=== PATIENT | female | born 1960 | race Caucasian/White ===

== ENCOUNTER 2017-07-04 12:42 | Day surgery (SDC) | payer OTHER ==
--- NOTE | 2017-07-04 12:39 | CPEKG ---
Heart Rate: 85 RR Interval: 706 P-R Interval: 177 QRSD Interval: 116 QT Interval: 388 QTC Interval: 462 P Aurora: 22 QRS Aurora: 155 T Wave Aurora: 14 EKG Severity - ABNORMAL ECG - EKG Impression: ATRIAL-SENSED VENTRICULAR-PACED RHYTHM Electronically Signed By: Iban Graham 04-Jul-2017 13:03:26
[~2017-07-04 12:42] MED LIST: ASPIRIN EC 325 MG TAB PO ONE; DIAZEPAM 5 MG TAB PO ONE; FAMOTIDINE 20 MG TAB PO ONE; NS 1,000 ML IV ONE; diphenhydrAMINE 25 MG CAP PO ONE
[2017-07-04 12:58] LABS: PLATELET COUNT 243 10^3/uL (150-400)
[2017-07-04] MEDS ORDERED: fentaNYL 100 MCG/2 ML INJ ONE (13:03)
[2017-07-04] MEDS ORDERED: LIDOCAINE 1% 300 MG/30 ML SDV ONE (13:03)
[2017-07-04] MEDS ORDERED: IOPAMIDOL (ISOVUE-370) 150 ML BTL IV ONE (13:04)
[2017-07-04] MEDS ORDERED: MIDAZOLAM 2 MG/2 ML VIAL ONE (13:04)
--- NOTE | 2017-07-04 13:09 | PDHPUP ---
History & Physical Update H&P update statement: This history and physical update is based on an assessment of the patient which was completed after admission or registration (within 24 hours), but prior to the surgery/procedure. H&P update: H&P reviewed & patient examined, no change in patient's condition since H&P completed
--- NOTE | 2017-07-04 13:09 | PDPROPOC ---
Sedation Plan of Care Sedation Plan of Care: vital signs stable, mental status noted, patient educated of risks, benefits, alternatives, patient can tolerate sedation ASA Classification: ASA 2 Planned drugs: fentanyl, midazolam Mallampati Score: Class 2 Mallampati Reference Image: Patient passed 3-3-2 rule?: Yes
[2017-07-04 13:10] LABS: INR 1.02 (0.83-1.16); PROTIME(PATIENT) 13.6 SEC (12.0-15.0)
[2017-07-04] MEDS ORDERED: NITROGLYCERIN 0.4 MG BTL SL PRN (14:10)
[2017-07-04] MEDS ORDERED: ATROPINE SULFATE 1 MG/10 ML SYR IVP PRN (14:10)
--- NOTE | 2017-07-04 14:50 | CPIP ---
[f rep st] INVASIVE CARDIAC PROCEDURE DATE OF PROCEDURE: 07/04/2017 PROCEDURE: 1. Coronary angiography. 2. Left ventriculography. INDICATION: 1. Known coronary artery disease, status post stenting of the left anterior descending coronary saumya ry. 2. Exertional chest pain, concerning for class 3 angina. 3. Abnormal exercise tolerance test that is intermediate risk. ACCESS: Patient was prepped and draped in a sterile fashion. 1% lidocaine was used to anesthetize t he right inguinal region. A 6-Bahamian introducer sheath was placed selectively into the right common femoral artery via modified Seldinger technique. CORONARY ANGIOGRAPHY: A 6-Bahamian JL4 was advanced to the left main coronary artery and images obtain ed. The left main coronary artery bifurcated into an LAD and circumflex coronary arteries. The left main coronary artery appeared normal. The left anterior descending coronary artery gave rise to one prominent diagonal branch as well as several smaller diagonal branches. The left anterior descendin g coronary artery was previously stented in the proximal and mid segments. The previously placed teresita nts have mild in-stent restenosis without flow limitation. The diagonal arteries are free of any sig nificant disease. The circumflex coronary artery is a moderate sized vessel. The circumflex coronar y artery gave rise to 5 OM branches. The circumflex coronary artery and its complement of OM branche s appeared normal. A 6-Bahamian Corey right catheter was advanced to the right coronary artery and images obtained. The right coronary artery is dominant. The right coronary artery appeared free of any significant disease. LEFT VENTRICULOGRAPHY: A 6-Bahamian pigtail catheter was advanced in the left ventricle and images obt ained. The left ventricle is normal in size and normal systolic function. Estimated ejection fracti on was 60%. Left ventricular end-diastolic pressure was 15 mmHg. COMPLICATIONS: None. CONCLUSIONS: 1. Patent left anterior descending stents with mild in-stent restenosis. 2. Mild coronary artery disease without flow limitation. 3. Normal left ventricular size and systolic function. 4. Plan is for medical management. /[id number]/MODL
[2017-07-04] MEDS ORDERED: CARVEDILOL 3.125 MG TAB PO SCH (21:00)
[2017-07-04] MEDS ORDERED: LORATADINE PO SCH (21:00)
[2017-07-04] MEDS ORDERED: CARVEDILOL 6.25 MG TAB PO SCH (21:00)
[2017-07-04] MEDS ORDERED: ESCITALOPRAM OXALATE 10 MG TAB PO SCH (21:00)
[2017-07-04] MEDS ORDERED: DOCUSATE SODIUM 100 MG CAP PO SCH (21:00)
[2017-07-04] MEDS ORDERED: MONTELUKAST SODIUM 10 MG TAB PO SCH (21:00)
[2017-07-04] MEDS ORDERED: NON-FORMULARY NEW DRUG (Ranitidine Hcl [Zantac] 300 MG) PO SCH (21:00)
[2017-07-05] MEDS ORDERED: PANTOPRAZOLE SODIUM 40 MG TAB PO SCH (09:00)
[2017-07-05] MEDS ORDERED: MULTIVITAMINS 1 EACH TAB PO SCH (09:00)
[2017-07-05] MEDS ORDERED: SPIRONOLACTONE 25 MG TAB PO SCH (09:00)
[2017-07-05] MEDS ORDERED: CLOPIDOGREL BISULFATE 75 MG TAB PO SCH (09:00)
[2017-07-05] MEDS ORDERED: ASPIRIN 81 MG CHEWABLE TAB PO SCH (09:00)
[2017-07-05] MEDS ORDERED: NON-FORMULARY NEW DRUG (Levocetirizine Dihydrochloride [Xyzal] 5 MG) PO SCH (09:00)
[2017-07-05] MEDS ORDERED: LOSARTAN POTASSIUM 25 MG TAB PO SCH (09:00)
== END 2017-07-04 18:29 | disposition home or self-care (01) ==
LOC: FCATH 12:42
PROVIDERS: ATTEND Internal Medicine Cardiovascular Disease
DX: T82.857A Stenosis of other cardiac prosthetic devices, implants and grafts, initial encounter (principal); I25.119 Atherosclerotic heart disease of native coronary artery with unspecified angina pectoris; Z95.5 Presence of coronary angioplasty implant and graft; Z95.810 Presence of automatic (implantable) cardiac defibrillator
CPT/HCPCS: J1644; J2250; J3010; Q9967

== ENCOUNTER 2018-01-22 09:45 | Day surgery (SDC) | payer OTHER ==
[2018-01-22] MEDS ORDERED: diphenhydrAMINE 25 MG CAP PO ONE (09:48)
[2018-01-22] MEDS ORDERED: DIAZEPAM 5 MG TAB PO ONE (09:48)
[2018-01-22] MEDS ORDERED: BACITRACIN IRRIGATION/NS 50,000 UNITS/1,000 ML BTL IRR ONE (09:48)
[2018-01-22] MEDS ORDERED: ceFAZolin 2 GM/DEXTROSE 100 ML IV ONE (09:48)
[2018-01-22] MEDS ORDERED: NS 1,000 ML IV ONE (09:48)
[2018-01-22] MEDS ORDERED: LIDO/EPI 1% **for epidural** 30 ML SDV ONE (10:28)
[2018-01-22] MEDS ORDERED: MIDAZOLAM 2 MG/2 ML VIAL ONE (10:28)
[2018-01-22] MEDS ORDERED: BUPIVACAINE 0.5% 30 ML SDV ONE (10:28)
[2018-01-22] MEDS ORDERED: fentaNYL 100 MCG/2 ML INJ ONE (10:28)
[2018-01-22] MEDS ORDERED: LIDOCAINE 1% 300 MG/30 ML SDV ONE (10:28)
[2018-01-22 10:29] LABS: PLATELET COUNT 242 10^3/uL (150-400)
--- NOTE | 2018-01-22 10:30 | PDPROPOC ---
Sedation Plan of Care Sedation Plan of Care: vital signs stable, mental status noted, patient educated of risks, benefits, alternatives, patient can tolerate sedation ASA Classification: ASA 1 Planned drugs: fentanyl, midazolam Mallampati Score: Class 1 Mallampati Reference Image: Patient passed 3-3-2 rule?: Yes
--- NOTE | 2018-01-22 10:34 | PDGENHP ---
History & Physical Chief Complaint: ICD at end of life. History of Present Illness: 57 yo known hx. of ischemic dilated cardiomyopathy, s/p LAD PCI. Long standing biventricular ICD with deveice at end of life. LV function has normalized on good medical therapy. Relevant Physical Exam: WN/WD. No jvp. Chest clear. Cor rrr. device left subclavian fossa. extm: No edema Cardiorespiratory Assessment: No contra-indications to proceeding with ICD device replacement.Discussed alterantive devices.. Past Medical History PMH: - Personal History Tetanus Vaccine Date: 2006 - Medical/Surgical History Hx Cardiac Disease: Yes - Family History Significant Family History: No pertinent family hx - Social History Smoking Status: Never smoked Additional Social History: Review of Systems Review of Systems: - Review of Systems Constitutional: no symptoms reported EENTM: no symptoms reported Respiratory: no symptoms reported Cardiac: no symptoms reported Gastrointestinal/Abdominal: no symptoms reported Genitourinary: no symptoms Musculoskelatal: no symptoms Skin: no symptoms Neurological: no symptoms Hematologic/Lymphatic: no symptoms reported Immunologic/allergic: no symptoms reported All Other Systems: Reviewed and Negative
[2018-01-22 10:38] LABS: INR 1.07 (0.83-1.16); PROTIME(PATIENT) 14.1 SEC (12.0-15.0)
--- NOTE | 2018-01-22 11:34 | PDCTREPORT ---
Cardiothoracic Procedure Rpt Cardiothoracic Procedure Report: Procedure: Replacement of a biventricular IC D. Indications: History of ischemic cardiomyopathy with device at end of life. After obtaining informed consent patient brought to the cardiac catheterization lab in the fasting state. Pacemaker site in the left subclavian fossa was sterilely prepped and draped. It was infiltrated with 2% xylocaine. Using a 10 blade an incision was made through the old scar tissue. Using a combination of sharp and blunt dissection and the Bovie catheter pacemaker pocket was entered and the old generator delivered to the field. Leads were removed. Each lead was tested. Appropriate sensitivities and thresholds were confirmed. Bacitracin sponge was briefly placed in the pocket. It was then removed and copiously irrigated. A new generator was delivered to the field. Leads were attached. Setscrews were tightened per industry standards. The entire system was coiled into the pocket. Standard three-layer closure was used to close the skin. Pressure dressing was applied the patient is taken to recovery for continued care. The device is a [employer] [id number] FLARING MACHINE OPERATOR-D serial [id number]. Right atrial sensing was 2.1 m V. Capture was at 0.4 volts with a pulse with 0.5 milliseconds. Impedance is 401 Ohms. Right ventricular sensing was 14.2 mV. Right ventricular capture was at 0.7 volts with a pulse with a 0.5 milliseconds. Impedance is 676 Ohms. Left ventricular sensing is 8.8 mV. Capture was at 2 volts with a pulse with a 1 millisecond. Conclusions: Successful Bi V pacemaker/ ICD generator change.
--- NOTE | 2018-01-22 16:59 | CPEKG ---
Test Reason : OPEN Blood Pressure : / mmHG Vent. Rate : 081 BPM Atrial Rate : 081 BPM P-R Int : 158 ms QRS Dur : 112 ms QT Int : 403 ms P-R-T Axes : 063 143 000 degrees QTc Int : 468 ms Atrial-sensed ventricular-paced rhythm Confirmed by Marcelina Barajas ([id number]) on 01/22/2018 4:59:20 PM Referred By: Confirmed By:Marcelina Barajas
--- NOTE | 2018-01-22 17:00 | CPEKG ---
Test Reason : OPEN Blood Pressure : / mmHG Vent. Rate : 075 BPM Atrial Rate : 000 BPM P-R Int : 161 ms QRS Dur : 109 ms QT Int : 403 ms P-R-T Axes : 053 136 122 degrees QTc Int : 451 ms Atrial-sensed ventricular-paced rhythm Confirmed by Marcelina Barajas ([id number]) on 01/22/2018 4:59:57 PM Referred By: Confirmed By:Marcelina Barajas
== END 2018-01-22 14:25 | disposition home or self-care (01) ==
LOC: FCATH 09:45
PROVIDERS: ATTEND Internal Medicine Interventional Cardiology
PROC: 0JPT0PZ Removal of Cardiac Rhythm Related Device from Trunk Subcutaneous Tissue and Fascia, Open Approach (ICD-10-PCS; principal; 2018-01-22)
PROC: 0JH608Z Insertion of Defibrillator Generator into Chest Subcutaneous Tissue and Fascia, Open Approach (ICD-10-PCS; principal; 2018-01-22)
DX: Z45.02 Encounter for adjustment and management of automatic implantable cardiac defibrillator (principal); I25.5 Ischemic cardiomyopathy; I25.10 Atherosclerotic heart disease of native coronary artery without angina pectoris; Z95.5 Presence of coronary angioplasty implant and graft
CPT/HCPCS: C1882; J0690; J2250; J3010

== ENCOUNTER → 2018-04-01 | Outpatient (CLI) | payer OTHER | LOC: CIMAGING 14:00 | PROVIDERS: ATTEND Family Medicine | DX: Z12.31 Encounter for screening mammogram for malignant neoplasm of breast (principal); Z80.3 Family history of malignant neoplasm of breast ==

== ENCOUNTER → 2018-04-08 | Outpatient (CLI) | payer OTHER | LOC: CIMAGING 12:42 | PROVIDERS: ATTEND Physician Assistant | DX: N60.02 Solitary cyst of left breast (principal) | CPT/HCPCS: 76641-PO ==